=== PATIENT | female | born 1945 | race Caucasian/White ===

== ENCOUNTER 2017-07-25 07:03 | Outpatient (CLI) | payer MEDICARE, OTHER ==
[~2017-07-25] VITALS: Ht 170.2 cm; Wt 86.4 kg
--- NOTE | ~2017-07-25 | HEMODYNAMI ---
PATIENT:VISHAL CARMONA MEDICAL RECORD: [id number] : 43 LOCATION:[facility] ADMISSION DATE: 07/25/17 Generatedon:07/25/20179:26 Patient name: VISHAL CARMONA Patient #: [id number] : 1945 Date of study: 07/25/2017 Page: Of Hemodynamic Procedure Report Patient Data Patient Demographics Procedure consent was obtained First Name: VISHAL Gender: Female Last Name: MATHEW : 1945 Middle Initial: M Age: 71 year(s) Patient #: [id number] Race: SSN: [id number] Additional ID: [id number] Contact details Address: [address] [place] [address] State: [place] City: [place] Zip code: [address] Past Medical History Allergies Allergen Reaction Date Comments Reported Other allergy 07/25/2017 CipRishi kinsey Admission Admission Data Admission Date: 07/25/2017 Admission Time: 7:03 Lab Results Lab Result Date: 07/25/2017 Lab Result Time: 7:40 Biochemistry Name Units Result Min Max BUN mg/dl 20 --(----)*- 7 18 Creatinine mg/dl 0.7 --(*---)-- 0.6 1.3 CBC Name Units Result Min Max Hematocrit % 39.3 -*(----)-- 42 54 Hemoglobin g/dl 12.9 -*(----)-- 13.5 17.5 Procedure Procedure Types Cath Procedure Diagnostic Procedure Sedation Charges Moderate Sedation up to 15 minutes Peripheral Cath Diagnostic Procedure Cath Peripheral Uxqns-Fgsqgou-Baq-Off Procedure Description Procedure Date Procedure Date: 07/25/2017 Procedure Start Time: 9:12 Procedure End Time: 9:25 Procedure Staff Name Function Rolan Nath MD Performing Physician Robles Pickens RN Nurse Jeanie Nelson RT Scrub Sylvia Dotson RT Monitor Procedure Data Cath Procedure Fluoroscopy Diagnostic fluoroscopy Total fluoroscopy Time: 1 time: 1 min min Diagnostic fluoroscopy Total fluoroscopy dose: 139 dose: 139 mGy mGy Contrast Material Contrast Material Type Amount (ml) Isovue 300 78 Entry Location Entry Primary Successful Side Size Upsize Upsize Entry Closure Succes sful Closure Location (Fr) 1 (Fr) 2 (Fr) Remarks Device Remarks Femoral Left 5 Fr Exoseal artery Estimated blood loss: 10 ml Diagnostic catheters Device Type Used For End Catheter Placement DIAGNOSTIC UF 5Fr Procedure catheter ([id number]) Procedure Complications No complications Procedure Medications Medication Administration Route Dosage Oxygen NC 2 l/min Heparin Flush Bag added to field 2 bags (1000units/500ml NS) 0.9% NaCl I.V. 100 ml/hr Fentanyl I.V. 25 mcg Versed I.V. 0.5 mg Hemodynamics Rest HGB: 12.9 (g/dl) Heart Rate: 59 (bpm) Snapshots Pre Cath Intra NCS Post Cath Vital Signs Time Heart Resp SPO2 etCO2 NIBP (mmHg) Rhythm Pain Sedation Rate (ipm) (%) (mmHg) Status Level (bpm) 8:59:37 59 16 98 0 176/79(109) NSR 0 (11) 10(A) , No pain 9:05:05 60 16 98 28.7 181/66(120) NSR 0 (11) 9(A) , No pain 9:09:39 58 17 92 0 163/67(105) NSR 0 (11) 9(A) , No pain 9:14:04 58 17 94 0 162/71(106) NSR 0 (11) 9(A) , No pain 9:18:30 56 16 98 30.2 165/73(120) NSR 0 (11) 9(A) , No pain 9:23:56 59 16 98 32.4 164/66(109) NSR 0 (11) 9(A) , No pain Medications Time Medication Route Dose Verified Delivered Reason Notes Effect iveness by by 8:59:26 Oxygen NC 2 Rolan Robles Per l/min Portillo Pickens RN physician 8:59:35 Heparin Flush added 2 Rolan Robles used for Bag to bags Portillo Pickens marketing team lead (1000units/500ml field NS) 8:59:45 0.9% NaCl I.V. 100 Rolan Robles Per ml/hr Portillo Pickens RN physician 9:03:41 Fentanyl I.V. 25 Rolan Robles for mcg Portillo Pickens RN sedation 9:03:50 Versed I.V. 0.5 Rolan chowdary mg Portillo Pickens RN sedation Procedure Log Time Note 8:41:29 Informed consent obtained and on chart 8:41:33 Diagnostic Cath Status : Elective 8:41:53 Robles Pickens RN sent for patient. Start room use. 8:41:53 Time tracking: Regular hours 8:41:58 Plan of Care:Hemodynamics will remain stable., Cardiac rhythm will remain stable., Comfort level will be maintained., Respiratory function will remain adequate., Patient/ family verbilizes understanding of procedure., Procedure tolerated without complication., Recovers from procedure without complications.. 8:58:10 Patient received from Pre/Post Procedure Room to CCL 2 Alert and oriented. Tansferred to table in Supine position. 8:58:11 Warm blankets applied, and kathryn hugger turned on for patient comfort. 8:58:12 Correct patient and procedure confirmed by team. 8:58:12 ECG and BP/O2 sat monitors applied to patient. 8:58:13 Vital chart was started 8:58:15 Baseline sample Acquired. 8:58:17 Rhythm: sinus rhythm 8:58:19 Full Disclosure recording started 8:58:39 H&P Date Dictated: 07/16/2017 Within 30 days and on chart., H&P Addendum completed by physician on day of procedure. (MUST COMPLETE FOR ALL OUTPATIENTS). 8:58:40 Pre-procedure instructions explained to patient. 8:58:41 Pre-op teaching completed and patient verbalized understanding. 8:58:41 Family in waiting room. 8:58:43 Patient NPO since Midnight. 8:59:02 Patient allergic to Other allergyCipro, Keflex 8:59:04 Is the patient allergic to Iodine/contrast media? No. 8:59:06 Is patient on blood thinner?No 8:59:07 Patient diabetic? No. 8:59:09 Previous problem with sedation/anesthesia? No ? 8:59:10 Snore? Yes 8:59:11 Sleep apnea? No 8:59:11 Deviated septum? No 8:59:12 Opens mouth fully? Yes 8:59:13 Sticks out tongue? Yes 8:59:15 Airway obstruction? No ? 8:59:17 Dentures? No ? 8:59:26 Oxygen 2 l/min NC was administered by Robles Pickens RN; Per physician; 8:59:35 Heparin Flush Bag (1000units/500ml NS) 2 bags added to field was administered by Robles Pickens RN; used for procedure; 8:59:45 0.9% NaCl 100 ml/hr I.V. was administered by Robles Pickens RN; Per physician; 9:00:26 Pre procedure: right dorsailis pedis pulse 2+ Normal; easily identifiable; not easily obliterated 9:00:28 Pre procedure: left dorsailis pedis pulse 1+ Palpable, but thready & weak; easily obliterated 9:00:30 Patient pain scale 0/10 ?. 9:01:07 IV patent on arrival in left forearm with 0.9% NaCl at [facility]. 9:02:09 Lab Result : BUN 20 mg/dl 9:02:09 Lab Result : Creatinine 0.7 mg/dl 9:02:09 Lab Result : Hemoglobin 12.9 g/dl 9:02:09 Lab Result : Hematocrit 39.3 % 9:02:11 Lab results completed and on chart. 9:02:14 Bilateral groins area was prepped with chlora-prep and draped in sterile fashion 9:02:15 Alarms reviewed by R. N. 9:02:15 Sharps counted by scrub and verified by R.N. 9:02:19 ACIST Syringe (52152) opened to sterile field. 9:02:19 Bag Decanter (2002) opened to sterile field. 9:02:20 Medline Cath Pack ([id number]) opened to sterile field. 9:02:21 SHEATH 5FR Wilkinson (SGU772) opened to sterile field. 9:02:21 DIAGNOSTIC WIRE .035 260cm J wire ([id number]) opened to sterile field. 9:02:23 ACIST Hand Control (34574) opened to sterile field. 9:02:24 ACIST Manifold (46320) opened to sterile field. 9:02:25 Tegaderm 4 x 4 (1626W) opened to sterile field. 9:02:26 PERCUTANEOUS ENTRY 19GA needle opened to sterile field. 9:02:39 Physician arrived 9:02:40 --------ALL STOP TIME OUT------ 9:02:40 Final Timeout: patient, procedure, and site verified with staff and physician. All members of the team are in agreement. 9::41 Bilateral groins site verified by team. 9:02:44 Physical assessment completed. ASA score P 2 - A patient with mild systemic disease as per Rolan Nath MD. 9:02:46 Sedation plan: IV Moderate Sedation Medication:Versed, Fentanyl 9:03:41 Fentanyl 25 mcg I.V. was administered by Robles Pickens RN; for sedation; 9::50 Versed 0.5 mg I.V. was administered by Robles Pickens RN; for sedation; 9::58 Zero performed for pressure channel P1 9:10:06 Zero performed for pressure channel P1 9:12:08 Procedure started. 9:12:23 Local anesthetic to left femerol artery with Lidocaine 2% by Rolan Nath MD.INITIAL ACCESS ONLY 9:16:06 A 5 Fr sheath was inserted into the Left Femoral artery 9:18:01 A DIAGNOSTIC UF 5Fr catheter ([id number]) was advanced over the wire and used for Procedure. 9:19:13 Abdominal angiogram w/ runoff was performed. 9:19:20 Left leg runoff performed. 9:19:22 Right leg runoff performed. 9:22:12 EXOSEAL 5Fr (EX500) opened to sterile field. 9:22:51 Sheath removed intact; hemostasis achieved with Exoseal to the Left Femoral artery. 9:22:58 Procedure ended.(Physican Out) 9:23:20 Fluoroscopy time 01.00 minutes. 9:23:24 Fluoroscopy dose: 139 mGy 9:23:24 Flurop Dose total: 139 9:23:30 Contrast amount:Isovue 300 78ml. 9:23:31 Sharps counted by scrub and verified by R.N. 9:23:40 Insertion/operative site no bleeding no hematoma. 9:23:45 Post-op/insertion site Left Femoral artery dressed using a 4 x 4 and Tegaderm. 9:23:48 Post Procedure Pulses reassessed and unchanged 9:23:54 Post-procedure physical assessment completed. ASA score P 2 - A patient with mild systemic disease as per Rolan Nath MD. 9:24:02 Post procedure rhythm: unchanged. 9:24:06 Estimated blood loss: 10 ml 9:24:16 Post procedure instruction explained to patient.Patient verbalizes understanding. 9:24:59 Procedure type changed to Cath procedure, Diagnostic procedure, Sedation Charges, Moderate Sedation up to 15 minutes, Peripheral Cath Diagnostic Procedure, Cath Peripheral, Przgi-Ycrrzif-Ajb-Off 9:25:00 Procedure and supply charges have been captured, reviewed, submitted and are correct. 9:25:26 Procedure Complication : No complications 9:25:29 Vital chart was stopped 9:25:29 See physician's report for complete and final results. 9:25:32 Report given to Pre/Post Procedure Room. 9:25:35 Patient transfered to Pre/Post Procedure Room with Stretcher. 9:25:37 Procedure ended. 9:25:37 Full Disclosure recording stopped 9:25:40 End room use (Document Last) Device Usage Item Name Manufacture Quantity Catalog Hospital Part Current Minimal Lot# / Number Charge Number Stock Stock Serial# Code ACIST Acist 1 [id number] 990096 029984 159799 20 Syringe Medical (99394) Systems Inc Bag Decanter Microtek 1 2001S 314143 98608 067091 5 (2001S) Medical Inc. Medline Cath Cardinal 1 [id number] 083992 16274 899721 5 Pack Health ([id number]) SHEATH 5FR Terumo 1 UZB723 170774 901383 514888 40 Wilkinson (ATH963) DIAGNOSTIC [facility] 1 934596 234674 234759 972655 30 WIRE .035 260cm J wire (201633) ACIST Hand Acist 1 82407 965953 476250 912245 5 Control Medical (62321) Systems Inc ACIST Acist 1 33516 210182 102754 380993 5 Manifold Medical (98676) Systems Inc Tegaderm 4 x 3M 1 1626W 754287 249087 851297 5 4 (1626W) PERCUTANEOUS Cook Medical 1 L09989 568365 013585 5 ENTRY 19GA needle DIAGNOSTIC Cardinal 1 [id number] 121328 130358 832808 10 UF 5Fr Health catheter ([id number]) EXOSEAL 5Fr Cardinal 1 EX500 542811 551834 906541 10 (EX500) Health Signature Audit [place] Time Signature Unsigned Intra-Procedure 07/25/2017 Sylvia Dotson 9:26:46 AM RT(R) Signatures Monitor : Sylvia Dotson Signature : RT Date : Time : [facility] [address] [place] [address]
[2017-07-25 07:49] VITALS: BP 149/65; Ht 170.2 cm; Wt 86.4 kg
[2017-07-25 07:49] LABS: BASOPHILS 0.5 % (0-2); EOSINOPHILS 5.4 % (0-7); HEMATOCRIT 39.3 % (36.0-48.0); HEMOGLOBIN 12.9 g/dL (12-16); IMMATURE GRANULOCYTES 0.3 % (0-5); LYMPHOCYTES 27.9 % (15-50); MCH 31.3 pg (26.0-34.0); MCHC 32.8 g/dL (31.0-37.0); MCV 95.4 fL (80.0-100.0); MEAN PLATELET VOLUME 11.1 fL (7.4-10.4); MONOCYTES 7.5 % (2-11); NEUTROPHILS 58.4 % (40-80); PLATELET COUNT 182 10x3/uL (130-400); RBC 4.12 10x6/uL (4.00-5.40); RDW 13.6 % (11.5-14.5); WBC 6.2 10x3/uL (4.8-10.8)
[2017-07-25] MEDS ORDERED: VITAMIN D250000 UNIT PO (07:57)
[2017-07-25] MEDS ORDERED: ALENDRONATE SOD70 MG PO (07:57)
[2017-07-25] MEDS ORDERED: MYSOLINE 50 MG50 MG PO (07:58)
[2017-07-25] MEDS ORDERED: EFFEXOR XR150 MG PO (07:58)
[2017-07-25] MEDS ORDERED: DIOVAN HCT 160/1 TAB PO (07:58)
[2017-07-25] MEDS ORDERED: PRAVASTATIN SOD10 MG PO (07:58)
[2017-07-25] MEDS ORDERED: DICLOFENAC SODI50 MG PO (07:59)
[2017-07-25] MEDS ORDERED: COREG12.5 MG PO (07:59)
[2017-07-25] MEDS ORDERED: ESTRACE1 MG PO (07:59)
[2017-07-25] MEDS ORDERED: LEVSIN/ANASP0.125 MG PO (08:00)
[2017-07-25] MEDS ORDERED: LYRICA75 MG PO (08:00)
[2017-07-25] MEDS ORDERED: XANAX1 MG PO (08:00)
[2017-07-25] MEDS ORDERED: EFFEXOR XR75 MG PO (08:00)
[2017-07-25 08:01] LABS: CALC OSMOLALITY 278 mosm/kg (275-300); CALCIUM 8.8 mg/dL (8.5-10.1); CARBON DIOXIDE 26.4 mmol/L (21.0-32.0); CHLORIDE - SERUM 103 mmol/L (98-107); CREATININE - SERUM 0.7 mg/dL (0.6-1.3); GLUCOSE 106 mg/dL (74-106); POTASSIUM - SERUM 3.8 mmol/L (3.5-5.1); SODIUM 138 mmol/L (136-145); UREA NITROGEN 20 mg/dL (7-18); eGFR NON AFRICAN AMERICAN 87 mL/min (90-120)
[2017-07-25] MEDS ORDERED: PEPCID AC20 MG PO (08:01)
[2017-07-25] MEDS ORDERED: ACETAMINOPHEN500 M1 PO (08:01)
[2017-07-25] MEDS ORDERED: FLINTSTONE1 TAB.CHEW PO (08:02)
[2017-07-25] MEDS ORDERED: ALIGN4 MG PO (08:02)
== END 2017-07-25 12:05 | disposition home or self-care (01) ==
LOC: D.CATH 07:03
PROVIDERS: Internal Medicine Cardiovascular Disease
DX: I70.219 Atherosclerosis of native arteries of extremities with intermittent claudication, unspecified extremity (principal); I10 Essential (primary) hypertension; I34.0 Nonrheumatic mitral (valve) insufficiency; Z01.812 Encounter for preprocedural laboratory examination

== ENCOUNTER → 2018-09-02 09:37 | Outpatient (CLI) | payer MEDICARE, OTHER ==
[~2018-09-02 09:37] MED LIST: ACETAMINOPHEN500 M1 PO; ALENDRONATE SOD70 MG PO; ALIGN4 MG PO; COREG12.5 MG PO; DICLOFENAC SODI50 MG PO; DIOVAN HCT 160/1 TAB PO; EFFEXOR XR150 MG PO; EFFEXOR XR75 MG PO; ESTRACE1 MG PO; FLINTSTONE1 TAB.CHEW PO; LEVSIN/ANASP0.125 MG PO; LYRICA75 MG PO; MYSOLINE 50 MG50 MG PO; PEPCID AC20 MG PO; PRAVASTATIN SOD10 MG PO; VITAMIN D250000 UNIT PO; XANAX1 MG PO
== END | disposition home or self-care (01) ==
LOC: D.HCCARDIO 09:37
DX: I10 Essential (primary) hypertension (principal)

== ENCOUNTER → 2019-08-06 09:12 | Outpatient (CLI) | payer MEDICARE, BC ==
[2017-07-25 07:49] VITALS: BMI 29.8
== END | disposition home or self-care (01) ==
LOC: D.HCCECHO 09:00
PROVIDERS: ATTEND Internal Medicine Cardiovascular Disease
DX: I34.0 Nonrheumatic mitral (valve) insufficiency (principal)